=== PATIENT | male | born 1955 | race Caucasian/White ===

== ENCOUNTER 2024-01-29 05:57 | Day surgery (SDC) | payer MEDICARE, SELFPAY ==
[2024-01-29] VITALS (8 sets, daily range): BP systolic 84–131; BP diastolic 51–101; PULSE 67–73; RESP 16; TEMP 36.1–36.3; O2SAT 96–100; BMI 21.1
--- OUTSIDE RECORDS SUMMARY | 2024-01-29 06:04 | XMS RPT_ITS | CCD ---
Author Organization [facility] Care Team Providers Care Emt Basic Name Role Phone Shreyas Lester DO Primary Care Provider [phone] SHREYAS LESTER Referring Unavailable SHREYAS LESTER Primary Care Unavailable SHREYAS LESTER Attending Unavailable SHREYAS LESTER Attending Unavailable SHREYAS LESTER Primary Care Unavailable Shreyas Lester DO Primary Care Provider [phone] Medications Current Medications Medication Drug Class(es) Dates Sig (Normalized) Sig (Original) bacitracin 0.5 unt/mg / polymyxin b 10 unt/mg ophthalmic ointment (1 source) Polymyxin-class Antibacterial Start: 11-10-2022 End: 11-15-2022 apply 3.5 g into the eye(s) every twelve hours bacitracin-polym yxin b (Polysporin) ophthalmic ointment Apply to right eye every 12 hours for 5 days. 3.5 g 0 11/10/2022 11/15/2022 Active sildenafil 100 mg oral tablet (4 sources) Phosphodiesterase 5 Inhibitor Start: 11-29-2023 End: 11-28-2024 take 1 tablet by mouth every twenty-four hours as needed sildenafil (Viagra) 100 MG tablet Take 1 tablet (100 mg) by mouth Daily as needed for erectile dysfunction. 12 tablet 3 11/29/2023 11/28/2024 Active Completed/Discontinued Medications Medication Drug Class(es) Dates Sig (Normalized) Sig (Original) 24 hr buPROPion hydrochloride 300 mg extended release oral tablet (1 source) Aminoketone Start: 04-23-2015 End: 09-29-2022 take 1 tablet by mouth every twenty-four hours in the morning buPROPion XL (Wellbutrin XL) 300 MG 24 hr tablet Take 1 tablet by mouth in the morning. 0 04/23/2015 09/29/2022 Discontinued (Therapy completed) Problems Active Problems Problem Classification Problem Date Documented Da te Episodic/Chronic Disorders of lipid metabolism (3 sources) Hypercholesterolemi a; Translations: [Pure hypercholesterolemi a, unspecified] Onset: 11-29-2023 11-29-2023 Chronic Other and unspecified benign neoplasm (1 source) Lipoma of buttock; Translations: [Benign lipomatous neoplasm of skin and subcutaneous tissue of trunk] 11-29-2023 Episodic Other and unspecified benign neoplasm (2 sources) Benign lipomatous neoplasm of skin and subcutaneous tissue of trunk; Translations: [Benign lipomatous neoplasm of skin and subcutaneous tissue of trunk] Onset: 11-29-2023 Episodic Other gastrointestinal disorders (4 sources) Stool DNA-based colorectal cancer screening positive; Translations: [Other fecal abnormalities] 09-29-2022 Episodic Other gastrointestinal disorders (2 sources) Other fecal abnormalities; Translations: [Other fecal abnormalities] Onset: 11-29-2023 Episodic Other male genital disorders (3 sources) Male erectile dysfunction, unspecified; Translations: [Impotence of organic origin] Onset: 11-29-2023 11-29-2023 Chronic Other screening for suspected conditions (not mental disorders or infectious disease) (7 sources) Patient encounter status; Translations: [Encounter for screening for malignant neoplasm of respiratory organs] Onset: 11-29-2023 09-29-2022 Episodic Other upper respiratory infections (3 sources) Viral upper respiratory tract infection; Translations: [Acute upper respiratory infection, unspecified] Onset: 11-29-2023 11-29-2023 Episodic Screening and history of mental health and substance abuse codes (3 sources) Tobacco smoking behavior - finding; Translations: [Personal history of nicotine dependence] Onset: 11-29-2023 11-29-2023 Episodic Substance-related disorders (6 sources) Smoker; Translations: [Nicotine dependence, unspecified, uncomplicated] Onset: 01-04-2024 09-29-2022 Chronic Superficial injury; contusion (1 source) Abrasion of cornea of right eye; Translations: [Injury of conjunctiva and corneal abrasion without foreign body, right eye, initial encounter] 11-10-2022 Episodic Past or Other Problems Problem Classification Problem Date Documented Da te Episodic/Chronic NEGATED: Highlighted row has been ruled out!Unclassified (7 sources) No known active problems 09-29-2022 Results Test Name Value Interpretation Reference Range Facil ity CT LUNG SCREENING LOW DOSEon 01-07-2024 CT LUNG SCREENING LOW DOSE This is a summary report. The complete report is available in the patient's medical record. If you cannot access the medical record, please contact the sending organization for a detailed fax or copy. [facility] Name[facility]MI[facility]ED[facility] 1955 [id number] Exam Date/Time: 01/04/2024 07:51 Procedure: CT LUNG SCREENING LOW DOSE Ordering Provider: LESTER EUGENE Reason For Exam: Lung cancer screening, >= 20 pk-yr smoking history (Age >= 50y) CT CHEST SCREENING WITHOUT CONTRAST CLINICAL INDICATION: Tobacco use, screening for lung cancer. Lung cancer screening, >= 20 pk-yr smoking history (Age >= 50y) TECHNIQUE: Low-dose axial CT images of the thorax from the lung apices through the bases were obtained. Dose reduction was employed with automated exposure control. COMPARISON: None. FINDINGS: Pulmonary nodules: *All nodule measurements are mean axial diameter and saved on sewell images* 3 mm left lower lobe nodule (6:245) and a few other micronodules bilaterally. Lungs: Centrilobular emphysema is present. Large bleb in the left upper lobe. No airspace consolidation or pleural effusion. Cardiomediastinum: Normal heart size with no pericardial effusion. No evidence of coronary artery calcification. Aorta and pulmonary arteries normal in caliber. Lymph nodes: No enlarged mediastinal, hilar, or axillary lymph nodes. Upper Abdomen: No acute process identified in the upper abdomen. Soft tissues and Osseous structures: Unremarkable IMPRESSION: 1. Few tiny lung nodules, the largest 3 mm. 2. Bullous emphysematous changes. 3. Normal heart. ASSESSMENT CATEGORY: Lung-RADS Category 2 - Benign appearance or behavior. Recommend continued annual low-dose screening CT in 12 months. No other clinically significant findings. Lung-RADS Version 2022 Assessment Categories. Release date: Jan 2022 blank Report Dictated on Electronically Signed By: Dustin Banks MD Electronically Signed Date/Time: 01/07/2024 8:24 AM EDT CHRONIC COUGH DENIES CP OR SOB SMOKED CIGARETTES 1 PPD X 48 YEARS QUIT 2 YEARS AGO CURRENTLY SMOKES 5 CIGARS/DAY NO PRIOR SX Normal [facility] 36on 12-10-2023 36 Transferred to [facility] t notes [facility] 36 Message released to patient as written. ----- Message from Monica Jansen sent at 12/10/2023 6:54 AM EDT ----- ----- Message ----- From: Shreyas Lester DO Sent: 12/09/2023 10:13 PM EDT To: [facility] Clinical Magazine Filler I know patient's reluctance to start a lipid-lowering med. No further recommendations except low-fat meals and will recheck in 6 to 12 months Patient's further questions if applicable: Pt understood message.No further questions. Were all questions from office addressed or relayed to the patient from encounter: Yes [place] [phone] Placed call to patient. Unable to reach them by phone to discuss lab results. Left detailed message to return call to discuss results. Please release information to patient [place] [phone] ----- Message from Monica Jansen sent at 12/10/2023 6:54 AM EDT ----- ----- Message ----- From: Shreyas Lester DO Sent: 12/09/2023 10:13 PM EDT To: [facility] Clinical Magazine Filler I know patient's reluctance to start a lipid-lowering med. No further recommendations except low-fat meals and will recheck in [address] [facility] 36on 12-03-2023 36 Transferred to [facility] notes [facility] 36 Message released to patient as written. ----- Message from Monica Jansen sent at 12/03/2023 6:24 AM EDT ----- ----- Message ----- From: Shreyas Lester DO Sent: 12/02/2023 8:46 PM EDT To: [facility] Clinical Magazine Filler CBC chemistries and prostate marker normal. Only issues persistent LDL elevation over goal of less than 100. Because of his smoking history he should begin a lipid-lowering drug. Let me know if he consents to beginning low-dose Crestor. Patient's further questions if applicable: Pt states would rather wait on starting a new medication. Please advise. Were all questions from office addressed or relayed to the patient from encounter: N/A \ [facility] 36 Placed call to patient. Unable to reach them by phone to discuss lab results. Left detailed message to return call to discuss results. Please release information to patient [facility] 36 ----- Message from Monica Jansen sent at 12/03/2023 6:24 AM EDT ----- ----- Message ----- From: Shreyas Lester DO Sent: 12/02/2023 8:46 PM EDT To: [facility] Clinical Magazine Filler CBC chemistries and prostate marker normal. Only issues persistent LDL elevation over goal of less than 100. Because of his smoking history he should begin a lipid-lowering drug. Let me know if he consents to beginning low-dose Crestor. [facility] Office Visiton 11-29-2023 Follow-up visit [id number] Emile Oviedo 1955 M Date Provider Department Center 11/29/2023 [id number] LESTER [facility] Family History Problem Relation Age of Onset Dementia Mother Comments: age 89 in 05/18, - dementia Heart disease Father 55 Comments: valvular heart ds d/t RF, age 85 No Known Problems Sister Other Mother's Sister Comments: ALS Pancreatic cancer Mother's Brother Comments: smoker and ETOH No Known Problems Maternal Grandmother No Known Problems Maternal Grandfather No Known Problems Paternal Grandmother Comments: Tuberculosis No Known Problems Paternal Grandfather Family Status - Relation Status Age at Mother Father 85 Sister Alive Brother Mother's Sister Alive Mother's Brother Alive Maternal Grandmother Maternal Grandfather Paternal Grandmother Paternal Grandfather Level of Service:G0439 DE PPPS, SUBSEQ VISIT (25) Reason for Visit and Comments: Medicare Annual Wellness Visit Subsequent [677] [facility] PATINSon 11-29-2023 PATINS Personalized Preventative Plan for Emile Oviedo - 11/29/2023 Medicare offers a range of preventative health benefits. Some of the tests and screenings are paid in full while others may be subject to a deductible, co-insurance, and / or copay. Some of these benefits include a comprehensive review of your medical history including lifestyle, illnesses that may run in your family, and various assessments and screenings as appropriate. After reviewing your medical record and screening and assessments performed today, your provider may have ordered immunizations, labs, imaging, and / or referrals for you. A list of these orders (if applicable) as well as your Preventative Care list are included within your After Visit Summary for your review. Other Preventative Recommendations: A preventive eye exam by an talent acquisition specialist is recommended every 1-2 years to screen for glaucoma, cataracts, macular degeneration, and other eye disorders. A preventive dental visit is recommended every 6 months. Try to get at least 150 minutes of exercise per week or 10,000 steps per day on a pedometer. You need 1200-1500mg of calcium and 9972-3952 international units of vitamin D per day. It is possible to meet your calcium requirement with diet alone, but a vitamin D supplement is usually necessary to meet this goal. When exposed to the sun, use a sunscreen that protects against both UVA and UVB radiation with an SPF of 30 or greater. Reapply every 2-3 hours or after sweating, drying off with a towel, or swimming. Always wear a seat belt when traveling in a car. Always wear a helmet when riding a bicycle or a motorcycle Normal [facility] Progress Noteon 11-29-2023 Progress Note [facility] [address] [place] [address] [address] [facility] [address] Dept: [phone] Dept Chief Complaint: Emile Oviedo is an 67 y.o. male here for an annual wellness visit. Assessment/Plan : Problem List Items Addressed This Visit None Visit Diagnoses Encounter for subsequent annual wellness visit (AWV) in Medicare patient - Primary Relevant Orders CBC auto differential Comprehensive metabolic panel Lipid panel PSA Total (Screening) History of smoking 25-50 pack years Screening for lung cancer Prostate cancer screening Relevant Orders PSA Total (Screening) Viral URI Lipoma of buttock Hypercholesterolemia Relevant Orders Lipid panel Erectile dysfunction, unspecified erectile dysfunction type Positive colorectal cancer screening using Cologuard test I have reviewed and reconciled the medication list with the patient today. Current Outpatient Medications Medication Sig Dispense Refill sildenafil (Viagra) 100 MG tablet Take 1 tablet (100 mg) by mouth Daily as needed for erectile dysfunction. 12 tablet 3 No current facility-administered medications for this visit. Also reviewed during this visit: Surg Hx Fam Hx The following health maintenance schedule was reviewed with the patient and provided in printed form in the after visit summary: Health Maintenance Topic Date Due Depression Screening Never done Hepatitis C Screening Never done Zoster Vaccines (1 of 2) Never done RSV Immunization aged 60 or older (1 - 1-dose 60+ series) Never done Medicare Advantage Annual Wellness Visit Never done COVID-19 Vaccine (2 - 2022-24 season) 2023 Influenza Vaccine (1) 11/25/2023 Colorectal Cancer Screening 01/30/2025 Lipid Panel 01/06/2027 DTaP/Tdap/Td Vaccines (2 - Td or Tdap) 11/10/2032 Pneumococcal Vaccine: 65+ Years Completed RSV Immunization under 20 Months Aged Out HIB Vaccines Aged Out Hepatitis B Vaccines Aged Out IPV Vaccines Aged Out Hepatitis A Vaccines Aged Out Meningococcal Vaccine Aged Out Rotavirus Vaccines Aged Out HPV Vaccines Aged Out List of current healthcare providers: Patient Care Team: Shreyas Lester DO as PCP - General (Family Medicine) Orders Placed This Encounter Procedures CBC auto differential Standing Status: Future Number of Occurrences: 1 Standing Expiration Date: 11/28/2024 Comprehensive metabolic panel Standing Status: Future Number of Occurrences: 1 Standing Expiration Date: 11/28/2024 Lipid panel Standing Status: Future Number of Occurrences: 1 Standing Expiration Date: 11/28/2024 PSA Total (Screening) Standing Status: Future Number of Occurrences: 1 Standing Expiration Date: 11/28/2024 Review of Systems Physical Exam Objective : BP 120/70 (BP Location: Left arm, Patient Position: Sitting, BP Cuff Size: Large adult) Pulse 65 Temp 36.1 ?C (97 ?F) (Temporal) Ht 6' 1 (1.854 m) Wt 162 lb 6.4 oz (73.7 kg) SpO2 98% BMI 21.43 kg/m? No results found. The physical exam is generally normal. Patient appears well, alert and oriented x 3, pleasant, cooperative. Vitals are as noted. No carotid bruits. Neck supple, no abnormal adenopathy, thyroid lesions or masses. Ears, nose and throat are normal without acute findings. Lungs are clear to auscultation. Heart is regular, without murmurs, gallops or ectopy. Abdomen is soft, non tender, without masses, hepatosplenomegaly, or bruits. Normal BS evident. Extremities are normal without edema. Peripheral pulses are fair. No worrisome skin lesions. Screening neurological exam is normal without focal deficits. Large soft lipoma on the lateral aspect the left buttock for more than 30 years. No worrisome features no hernias. Prostate exam smooth without nodules. No rectal masses Subjective : Long-term smoker now smoking 5 cigars a day presents for annual wellness exam. Recent cough and congestion. Productive of clear phlegm. No fever body aches. Did not do a COVID exam. No vomiting or diarrhea. Does not feel too sick. History of positive Cologuard but have not had success organizing a colonoscopy no bowel changes. No abdominal pain. No melena or blood no constipation diarrhea. Needs NANCI and PSA. Some nocturia but rarely. No change in vision hearing. Denies exertional chest pain shortness of breath cough or wheezing. Failed to organize a LDCT of the chest last year. Questions about Viagra possibility in lieu of his difficulty maintaining erection. Health Risk Assessment: General: General In general, how would you say your health is?: (P) Excellent In the past 7 days, have you experienced any of the following: New or Increased Pain, New or Increased Fatigue, Loneliness, Social Isolation, Stress or Anger?: (P) No Do you get the social and emotional suppport you need?: (P) Yes Health Habits/Nutrition: Health Habits / Nutrition (more content not included)... [facility] 36on 10-10-2023 36 Changed patients 11/29/23 appointment to his [facility] Progress Noteon 10-05-2023 Progress Note Please schedule AWV to close care gaps. Thank you. [facility] Vital Signs Date Time Vital Sign Value Performing Clinician Nav domínguez 11-29-2023 08:19-0400 Body height 185.4 cm Shreyas Lester DO Work Phone: [facility] 11-29-2023 08:19-0400 Body mass index (BMI) [Ratio] 21.43 kg/m2 Shreyas Lester DO Work Phone: [facility] 11-29-2023 08:19-0400 Body temperature 97 [degF] Shreyas Lester DO Work Phone: [facility] [employer] 11-29-2023 08:19-0400 Body weight 73.66 kg Shreyas Lester DO Work Phone: [facility] [employer] 11-29-2023 08:19-0400 Diastolic blood pressure 70 mm[Hg] Shreyas Lester DO Work Phone: [facility] [employer] 11-29-2023 08:19-0400 Heart rate 65 /min Shreyas Lester DO Work Phone: [facility] [employer] 11-29-2023 08:19-0400 SaO2% (BldA) [Mass fraction] 98 % Shreyas Lester DO Work Phone: [facility] [employer] 11-29-2023 08:19-0400 Systolic blood pressure 120 mm[Hg] Shreyas Lester DO Work Phone: [facility] [employer] 11-10-2022 17:52-0400 Body height 185.4 cm Narendra Verduzco MD Work Phone: [facility] [employer] 11-10-2022 17:52-0400 Body mass index (BMI) [Ratio] 21.11 kg/m2 Narendra Verduzco MD Work Phone: [facility] [employer] 11-10-2022 17:52-0400 Body temperature 98.2 [degF] Narendra Verduzco MD Work Phone: [facility] [employer] 11-10-2022 17:52-0400 Body weight 72.58 kg Narendra Verduzco MD Work Phone: [facility] [employer] 11-10-2022 17:52-0400 Diastolic blood pressure 83 mm[Hg] Narendra Verduzco MD Work Phone: [facility] [employer] 11-10-2022 17:52-0400 Heart rate 72 /min Narendra Verduzco MD Work Phone: [facility] [employer] 11-10-2022 17:52-0400 Respiratory rate 17 /min Narendra Verduzco MD Work Phone: [facility] [employer] 11-10-2022 17:52-0400 SaO2% (BldA) [Mass fraction] 100 % Narendra Verduzco MD Work Phone: [facility] [employer] 11-10-2022 17:52-0400 Systolic blood pressure 118 mm[Hg] Narendra Verduzco MD Work Phone: [facility] [employer] 09-29-2022 11:29-0400 Body height 182.9 cm Shreyas Lester DO Work Phone: [facility] [employer] 09-29-2022 11:29-0400 Body mass index (BMI) [Ratio] 21.54 kg/m2 Shreyas Lester DO Work Phone: [facility] [employer] 09-29-2022 11:29-0400 Body temperature 98.01 [degF] Shreyas Lester DO Work Phone: [facility] [employer] 09-29-2022 11:29-0400 Body weight 72.03 kg Shreyas Lester DO Work Phone: [facility] [employer] 09-29-2022 11:29-0400 Diastolic blood pressure 67 mm[Hg] Shreyas Lester DO Work Phone: [facility] [employer] 09-29-2022 11:29-0400 Heart rate 74 /min Shreyas Lester DO Work Phone: [facility] [employer] 09-29-2022 11:29-0400 SaO2% (BldA) [Mass fraction] 97 % Shreyas Lester DO Work Phone: [facility] [employer] 09-29-2022 11:29-0400 Systolic blood pressure 123 mm[Hg] Shreyas Lester DO Work Phone: [facility] [employer] Encounters Encounter Date Encounter Type Care Provider Facility Start: 01-04-2024 End: 01-04-2024 Subsequent hospital visit by physician Shreyas Lester DO Work Phone: [facility] Comment on above: Moderate smoker (20 or less per day) Start: 01-04-2024 End: 01-04-2024 ambulatory [facility] Start: 11-29-2023 End: 11-29-2023 Telephone encounter Shreyas Lester DO Work Phone: [facility] Comment on above: Orders (LDCT / [facility] o - Dr Friend) Start: 11-29-2023 End: 11-29-2023 Assay of hemosiderin, quant Shreyas Lester DO Work Phone: [facility] Start: 11-29-2023 End: 11-29-2023 Patient encounter procedure Shreyas Lester DO Work Phone: [facility] Comment on above: Encounter for subseq uent annual wellness visit (AWV) in Medicare patient (Primary Dx); History of smoking 25-50 pack years; Screening for lung cancer; Prostate cancer screening; Viral URI; Lipoma of buttock; Hypercholesterolemia; Erectile dysfunction, unspecified erectile dysfunction type; Positive colorectal cancer screening using Cologuard test; Routine general medical examination at health care facility Start: 11-29-2023 End: 11-29-2023 ambulatory [facility] Start: 11-29-2023 End: 11-29-2023 Encounter for general adult medical examination without abnormal findings [facility] Start: 11-10-2022 End: 11-10-2022 Emergency department patient visit Narendra Verduzco MD Work Phone: [facility] Comment on above: Abrasion of right co rnea, initial encounter (Primary Dx) Start: 09-29-2022 Telephone encounter Shreyas Segura jeanine DO Work Phone: [facility] Comment on above: Referral ([facility]) Start: 09-29-2022 End: 09-29-2022 Office outpatient visit 15 minutes Shreyas Lester DO Work Phone: [facility] Comment on above: Positive colorectal cancer screening using Cologuard test (Primary Dx); Smoker; Screening for lung cancer Procedures Date Procedure Procedure Detail Performing Clinician Start: 11-29-2023 Adult depression screening assessment Shreyas Lester DO Work Phone: Start: 11-29-2023 Lipid 1996 panel - S titus or Plasma Shreyas Lester DO Work Phone: Start: 01-06-2022 Lipid 1996 panel - S titus or Plasma Shreyas Lester DO Work Phone: Plan of Treatment Date Care Activity Detail Author Start: 11-10-2032 DTaP/Tdap/Td Vaccine s (2 - Td or Tdap) DTaP/Tdap/Td Vaccines (2 - Td or Tdap) [facility] Start: 11-28-2028 Lipid panel Lipid Panel [facility] Start: 01-06-2027 Lipid panel Lipid Panel [facility] Start: 01-30-2025 Screening for malignant neoplasm of colon [facility] [employer] [employer] Start: 12-01-2024 End: 12-01-[address] [facility] Start: 11-28-2024 Depression Screening Depression Scre ening [facility] [employer] Start: 11-29-2023 End: 11-28-2024 CBC W Auto Differential panel - Blood CBC auto differential Lab Routine Encounter for subsequent annual wellness visit (AWV) in Medicare patient Expected: 11/29/2023 (Approximate), Expires: 11/28/2024 [facility] Work Phone: Comment on above: Expected: 11/29/2023 (Approximate), Expires: 11/28/2024 Start: 11-29-2023 End: 11-28-2024 Comprehensive metabolic 1998 panel - Serum or Plasma Comprehensive metabolic panel Lab Routine Encounter for subsequent annual wellness visit (AWV) in Medicare patient Expected: 11/29/2023 (Approximate), Expires: 11/28/[address] [facility] [employer] [employer] Comment on above: Expected: 11/29/2023 (Approximate), Expires: 11/28/2024 Start: 11-29-2023 End: 11-28-2024 CT Chest for screening WO contrast CT lung screening low dose Imaging Routine Moderate smoker (20 or less per day) Expected: 11/29/2023, [facility]: Comment on above: Expected: 11/29/2023 , Expires: 11/28/2024 Start: 11-29-2023 End: 11-28-2024 Lipid 1996 panel - Serum or Plasma Lipid panel Lab Routine Encounter for subsequent annual wellness visit (AWV) in Medicare patient Hypercholesterolemia Expected: 11/29/2023 (Approximate), Expires: 11/28/[address] [facility] [employer] Comment on above: Expected: 11/29/2023 (Approximate), Expires: 11/28/2024 Start: 11-29-2023 End: 11-28-2024 PSA Total (Screening) PSA Total (Screening) Lab Routine Prostate cancer screening Encounter for subsequent annual wellness visit (AWV) in Medicare patient Expected: 11/29/2023 (Approximate), Expires: 11/28/2024 [facility] Comment on above: Expected: 11/29/2023 (Approximate), Expires: 11/28/2024 Start: 11-25-2023 COVID-19 Vaccine ( season) COVID-19 Vaccine ( - season) [facility] Start: 11-25-2023 Influenza vaccination Influenza Vacc ine (#1) [facility] Start: 11-24-2022 Influenza vaccination Influenza Vacc ine (#1) [facility] Start: 10-05-2020 COVID-19 Vaccine (2 - Booster for Aditya series) COVID-19 Vaccine (2 - Booster for Aditya series) [facility] Start: 2016 RSV Immunization age d 60 or older (1 - 1-dose 60+ series) RSV Immunization aged 60 or older (1 - 1-dose 60+ series) [facility] Start: 2006 Zoster Vaccines (1 o f 2) Zoster Vaccines (1 of 2) [facility] Start: 01-01-1976 DTaP/Tdap/Td Vaccine s (1 - Tdap) DTaP/Tdap/Td Vaccines (1 - Tdap) [facility] Start: 1974 Diabetes mellitus screening Diabetes Screening [facility] Start: 1974 Hepatitis C screening Hepatitis C Sc reening [facility] Start: 1968 Depression Screening Depression Scre ening [facility] Start: 1955 Annual wellness visit Medicare Initial Physical (IPPE) [facility] Start: 1955 Screening for malignant neoplasm of colon [facility] End: 01-04-2024 CT Chest for screening WO contrast [facility] Work Phone: Comment on above: Once for 1 Occurrenc es starting 01/04/2024 until 01/04/2024 Immunizations Immunization Date Immunization Notes Care Provider Travis martínez 11-10-2022 tetanus toxoid, redu shekhar diphtheria toxoid, and acellular pertussis vaccine, adsorbed Narendra Verduzco MD Work Phone: [facility] 01-24-2022 Pneumococcal Conjuga te PCV20, Pf (Prevnar 20) Shreyas Trevon DO Work Phone: [facility] [employer] Payers Date Payer Category Payer Medicare [employer] ANGELIQUEPavel DOMÍNGUEZ [id number] 2021-Present [address] [place] [address] Medicare HMO [id number] 2021 Medicare [id number] Social History Date Type Detail Facility Start: 11-29-2023 Tobacco smoking status NHIS Smokes t obacco daily [facility] History of tobacco use Cigarette Smoker [facility] Start: 09-29-2022 End: 12-02-2023 Alcohol intake Ex-drinker (finding) [facility] Start: 03-22-2022 End: 11-29-2023 History of Social function [facility] Start: 03-22-2022 End: 11-29-2023 Tobacco use panel [facility] Start: 1955 Sex Assigned At Not on file [facility] Start: 09-19-2022 End: 11-10-2022 Exposure to SARS-CoV-2 (event) Not sure [facility] History of tobacco use Cigar Smoker [facility] Start: 11-29-2023 Tobacco use and exposure Smoke less tobacco non-user [facility] How often do you nee d to have someone help you when you read instructions, pamphlets, or other written material from your doctor or pharmacy [SILS] Never [facility] Has the [employer], or water [employer] threatened to shut off services in your home in past 12Mo No [facility] Do you belong to any clubs or organizations such as worship groups, unions, fraternal or athletic groups, or school groups? Yes [facility] Are you now , , , , never or living with a partner? [facility] Do you feel stress - tense, restless, nervous, or anxious, or unable to sleep at night because your mind is troubled all the time - these days [OSQ] Not at all [facility] (I/We) worried wheth er (my/our) food would run out before (I/we) got money to buy more. Never true [facility] Start: 11-29-2023 Tobacco Comment Quit smoking jean rivera in Mar 2023 and now smokes about 5 cigars a day. [facility] Clinical Notes 09-29-2022 to 11-29-2023 Telephone Encounter - Charis Caballero - 11/29/2023 2:23 PM EDTTelephone Encounter - Charis Ada - 11/29/2023 2:23 PM EDFran Lester DO - 11/29/2023 8:30 AM EDTPatient InstructionsAttachments Note Date & Type Note Facility 11-29-2023 Note Orders / referral pe nded for doctor's signature [facility] 11-29-2023 Telephone encounter Note Orders / referral pended for doctor's signature [facility] 11-29-2023 Miscellaneous Notes Orders / referral pended for doctor's signature documented in this encounter [facility] 11-29-2023 History of Present illness Narrative Images from the original note were not included. [facility] [address] [place] [address] Dept: [phone] Dept Chief Complaint: Emile Oviedo is an 67 y.o. male here for an annual wellness visit. Assessment/Plan : Problem List Items Addressed This Visit None Visit Diagnoses Encounter for subsequent annual wellness visit (AWV) in Medicare patient - Primary Relevant Orders CBC auto differential Comprehensive metabolic panel Lipid panel PSA Total (Screening) History of smoking 25-50 pack years Screening for lung cancer Prostate cancer screening Relevant Orders PSA Total (Screening) Viral URI Lipoma of buttock Hypercholesterolemia Relevant Orders Lipid panel Erectile dysfunction, unspecified erectile dysfunction type Positive colorectal cancer screening using Cologuard test I have reviewed and reconciled the medication list with the patient today. Current Outpatient Medications Medication Sig Dispense Refill sildenafil (Viagra) 100 MG tablet Take 1 tablet (100 mg) by mouth Daily as needed for erectile dysfunction. 12 tablet 3 No current facility-administered medications for this visit. Also reviewed during this visit: Surg Hx Fam Hx The following health maintenance schedule was reviewed with the patient and provided in printed form in the after visit summary: Health Maintenance Topic Date Due Depression Screening Never done Hepatitis C Screening Never done Zoster Vaccines (1 of 2) Never done RSV Immunization aged 60 or older (1 - 1-dose 60+ series) Never done Medicare Advantage Annual Wellness Visit Never done COVID-19 Vaccine (2 - 2022- season) 2023 Influenza Vaccine (1) 11/25/2023 Colorectal Cancer Screening 01/30/2025 Lipid Panel 01/06/2027 DTaP/Tdap/Td Vaccines (2 - Td or Tdap) 11/10/2032 Pneumococcal Vaccine: 65+ Years Completed RSV Immunization under 20 Months Aged Out HIB Vaccines Aged Out Hepatitis B Vaccines Aged Out IPV Vaccines Aged Out Hepatitis A Vaccines Aged Out Meningococcal Vaccine Aged Out Rotavirus Vaccines Aged Out HPV Vaccines Aged Out List of current healthcare providers: Patient Care Team: Shreyas Lester DO as PCP - General (Family Medicine) Orders Placed This Encounter Procedures CBC auto differential Standing Status: Future Number of Occurrences: 1 Standing Expiration Date: 11/28/2024 Comprehensive metabolic panel Standing Status: Future Number of Occurrences: 1 Standing Expiration Date: 11/28/2024 Lipid panel Standing Status: Future Number of Occurrences: 1 Standing Expiration Date: 11/28/2024 PSA Total (Screening) Standing Status: Future Number of Occurrences: 1 Standing Expiration Date: 11/28/2024 Review of Systems Physical Exam Objective : BP 120/70 (BP Location: Left arm, Patient Position: Sitting, BP Cuff Size: Large adult) Pulse 65 Temp 36.1 C (97 F) (Temporal) Ht 6' 1 (1.854 m) Wt 162 lb 6.4 oz (73.7 kg) SpO2 98% BMI 21.43 kg/m No results found. The physical exam is generally normal. Patient appears well, alert and oriented x 3, pleasant, cooperative. Vitals are as noted. No carotid bruits. Neck supple, no abnormal adenopathy, thyroid lesions or masses. Ears, nose and throat are normal without acute findings. Lungs are clear to auscultation. Heart is regular, without murmurs, gallops or ectopy. Abdomen is soft, non tender, without masses, hepatosplenomegaly, or bruits. Normal BS evident. Extremities are normal without edema. Peripheral pulses are fair. No worrisome skin lesions. Screening neurological exam is normal without focal deficits. Large soft lipoma on the lateral aspect the left buttock for more than 30 years. No worrisome features no hernias. Prostate exam smooth without nodules. No rectal masses Subjective : Long-term smoker now smoking 5 cigars a day presents for annual wellness exam. Recent cough and congestion. Productive of clear phlegm. No fever body aches. Did not do a COVID exam. No vomiting or diarrhea. Does not feel too sick. History of positive Cologuard but have not had success organizing a colonoscopy no bowel changes. No abdominal pain. No melena or blood no constipation diarrhea. Needs NANCI and PSA. Some nocturia but rarely. No change in vision hearing. Denies exertional chest pain shortness of breath cough or wheezing. Failed to organize a LDCT of the chest last year. Questions about Viagra possibility in lieu of his difficulty maintaining erection. Health Risk Assessment: General: General In general, how would you say your health is?: (P) Excellent In the past 7 days, have you experienced any of the following: New or Increased Pain, New or Increased Fatigue, Loneliness, Social Isolation, Stress or Anger?: (P) No Do you get the social and emotional suppport you need?: (P) Yes Health Habits/Nutrition: Health Habits / Nutrition On average, how many days per week do you engage in moderate to strenous exercise (like a brisk walk)?: (P) 6 days On average, how man minutes do you engage in exercise at this level?: (P) 150 + min Have you lost any weight without trying in the past 3 months? : (P) No Have you seen the dentist within the past year?: (!) (P) No Hearing/ Vision: Hearing / Vision Do you or your family notice any trouble with your hearing that hasn't been managed with hearing aids?: (!) (P) Yes Do you have difficulty driving, watching TV, or doing any of your daily activities because of your eyesight?: (P) No Have you had an eye exam within the past year?: (P) Yes No results found. Interventions: Vision concerns: Patient declines any further evaluation / treatment for this issue Safety: Safety Do you have a working smoke detector?: (P) Yes Do you have any tripping hazards - loose or unsecured carpets or rugs?: (P) No Do you have any tripping hazards - clutter in doorways, halls, or stairs?: (P) No Do you have either shower bars, grab bars, non-slip mats or non-slip surfaces in your shower or bathtub? : (!) (P) No Do all your stairways have a railing or banister? : (!) (P) No Do you fasten your seatbelt when you are in a car?: (P) Yes Interventions: Patient declines any further evaluation / treatment for this issue ADL: ADL In the past 7 days, did you need help from others to perform any of the following everyday activities: Eating, dressing, grooming,bathing, toileting, or walking / balance? : (P) No In the past 7 days, did you need help from others to take care of any of the following: laundry, housekeeping, banking / finances,shopping, telephone use, food preparation, transportation, or taking medications? : (P) No Living Will: Living Will Do you have a living will?: (P) Yes Cognitive: Cognitive Screening: Mini-Cog Clock Drawing Test (CDT): 2 Words Recalled: 3 Total Score: 5 Total Score Interpretation: Normal Mini-Cog Fall Risk: Fall Risk One or more falls in the last year:: (P) No Advised to use a cane or walker to get around safely:: (P) No Feels unsteady when walking:: (P) No Steadies self on furniture while walking at home:: (P) No Worried about falling:: (P) No Depression Screening: Over the past 2 weeks, how often have you been bothered by any of the following problems? Little interest or pleasure in doing things: Not at all Feeling down, depressed, or hopeless: Not at all Patient Health Questionnaire-2 Score: 0 Interventions: Patient declines any further evaluation / treatment for this issue Tobacco Use: Social History Tobacco Use Smoking Status Every Day Types: Cigars Smokeless Tobacco Never Tobacco Comments Quit smoking cigarettes in Mar 2023 and now smokes about 5 cigars a day. Alcohol Use: Audit Alcohol Screening Q2: How many drinks containing alcohol do you have on a typical day when you are drinking?: Patient does not drink 1. History of smoking 25-50 pack years Needs LDCT chest. Encouraged cigar cessation see above 2. Screening for lung cancer See above 3. Prostate cancer screening - PSA Total (Screening); Future - PSA Total (Screening) 4. Viral URI Conservative measures. Call if worsening. COVID exam as needed 5. Encounter for subsequent annual wellness visit (AWV) in Medicare patient - CBC auto differential; Future - Comprehensive metabolic panel; Future - Lipid panel; Future - PSA Total (Screening); Future - CBC auto differential - Comprehensive metabolic panel - Lipid panel - PSA Total (Screening) 6. Lipoma of buttock Observe 7. Hypercholesterolemia Low-fat meals possible statin removed smoking history - Lipid panel; Future - Lipid panel 8. Erectile dysfunction, unspecified erectile dysfunction type Having issues. Viagra. 9. Positive colorectal cancer screening using Cologuard test Urgent GI consultation documented in this encounter [facility] 11-29-2023 Instructions Shreyas Lester DO - 11/29/2023 8:30 AM EDT Personalized Preventative Plan for Emile Oviedo - 11/29/2023 Medicare offers a range of preventative health benefits. Some of the tests and screenings are paid in full while others may be subject to a deductible, co-insurance, and / or copay. Some of these benefits include a comprehensive review of your medical history including lifestyle, illnesses that may run in your family, and various assessments and screenings as appropriate. After reviewing your medical record and screening and assessments performed today, your provider may have ordered immunizations, labs, imaging, and / or referrals for you. A list of these orders (if applicable) as well as your Preventative Care list are included within your After Visit Summary for your review. Other Preventative Recommendations: A preventive eye exam by an talent acquisition specialist is recommended every 1-2 years to screen for glaucoma, cataracts, macular degeneration, and other eye disorders. A preventive dental visit is recommended every 6 months. Try to get at least 150 minutes of exercise per week or 10,000 steps per day on a pedometer. You need 1200-1500mg of calcium and [id number] international units of vitamin D per day. It is possible to meet your calcium requirement with diet alone, but a vitamin D supplement is usually necessary to meet this goal. When exposed to the sun, use a sunscreen that protects against both UVA and UVB radiation with an SPF of 30 or greater. Reapply every 2-3 hours or after sweating, drying off with a towel, or swimming. Always wear a seat belt when traveling in a car. Always wear a helmet when riding a bicycle or a motorcycle documented in this encounter [facility] 11-10-2022 Hospital Discharge instructions Narendra Verduzco MD - 11/10/2022 6:24 PM EDT Tylenol as needed for pain The following attachments cannot be sent through Care Everywhere.Corneal Abrasion (Swedish)Diphtheria and Tetanus Toxoids, and Acellular Pertussis Vaccine, ADULT (Swedish)documented in this encounter [facility] 11-10-2022 Emergency department Note EMERGENCY DEPARTMENT ENCOUNTER Pt Name: Emile Oviedo Birthdate 1955 Date of evaluation: 11/10/2022 ED Provider: Narendra Verduzco MD CHIEF COMPLAINT Chief Complaint Patient presents with Eye Trauma Around 2:45pm, patient was replacing a light fixture and poked himself in the eye with the wire (not live), eye is red and draining, irritated pain rated 3-4/10 History from patient and HISTORY OF PRESENT ILLNESS (Location/Symptom, Timing/Onset, Context/Setting, Quality, Duration, Modifying Factors, Severity) Note limiting factors. I wore appropriate PPE for the entirety of this encounter. HPI Emile Oviedo is a 66 y.o. who presents to the emergency department with chief complaint of right eye pain. Patient states that approximately 2:45 PM he inadvertently hit his eye on a copper wire from the light. No change in his vision. He had some mild photophobia and increase in pain. He told his who recently had an eye foreign body and she brought him to the emergency department for evaluation. Last tetanus immunization unknown. Not intentional. No other injury. Nursing Notes were reviewed. Limitations to history: None Outside historians: Family REVIEW OF SYSTEMS Review of Systems Constitutional: Negative for fever. Eyes: Positive for photophobia and pain. Negative for discharge, redness, itching and visual disturbance. Respiratory: Negative for shortness of breath. Cardiovascular: Negative for chest pain. Gastrointestinal: Negative for abdominal pain. Genitourinary: Negative for difficulty urinating. Musculoskeletal: Negative for back pain and neck pain. Skin: Negative for rash. Neurological: Negative for headaches. Psychiatric/Behavioral: Negative for self-injury. Pertinent positives and negatives as per HPI. PAST MEDICAL HISTORY Past Medical History: Diagnosis Date Bilateral hydrocele Depression Positive colorectal cancer screening using Cologuard test 01/2022 GI ref pnd Prostate cancer screening 12/2021 Smoker SURGICAL HISTORY Past Surgical History: Procedure Laterality Date FINGER SURGERY Right foreign body,index finger TONSILLECTOMY (HISTORICAL) 1959 CURRENT MEDICATIONS Previous Medications No medications on file ALLERGIES Patient has no known allergies. FAMILY HISTORY Family History Problem Relation Name Age of Onset Dementia Mother age 89 in 05/18, - dementia Heart disease Father 55 valvular heart ds, age 85 No Known Problems Sister Other ([id number]) Mother's Sister ALS Pancreatic cancer Mother's Brother smoker and ETOH No Known Problems Maternal Grandmother No Known Problems Maternal Grandfather No Known Problems Paternal Grandmother No Known Problems Paternal Grandfather SOCIAL HISTORY Social History Socioeconomic History Marital status: Tobacco Use Smoking status: Every Day Packs/day: 0.75 Types: Cigarettes Smokeless tobacco: Never Substance and Sexual Activity Alcohol use: Not Currently Drug use: Never Social History Narrative to Lauryn in 09/14. Has 2 sons, one GD. 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 SCREENINGS PHYSICAL EXAM ED Triage Vitals [11/10/22 1752] Temp Heart Rate Resp BP 36.8 C (98.2 F) 72 17 118/83 SpO2 Temp Source Heart Rate Source Patient Position 100 % Oral Monitor -- BP Location FiO2 (%) -- -- Physical Exam Constitutional: Appearance: Normal appearance. HENT: Head: Normocephalic and atraumatic. Cardiovascular: Rate and Rhythm: Normal rate. Pulmonary: Effort: Pulmonary effort is normal. Skin: General: Skin is warm and dry. Neurological: General: No focal deficit present. Mental Status: He is alert. Eyes - acuity 20/20 each, PERRLA, EOM intact, Slit lamp shows no foreign body no hyphema. Small abrasion. EMERGENCY DEPARTMENT COURSE and DIFFERENTIAL DIAGNOSIS/MDM: Vitals: Vitals: 11/10/22 1752 BP: 118/83 Pulse: 72 Resp: 17 Temp: 36.8 C (98.2 F) TempSrc: Oral SpO2: 100% Weight: 72.6 kg (160 lb) Height: 1.854 m (6' 1 ) Medical Decision Making and ED Course The patient presented with a chief complaint of right eye pain. The differential diagnosis associated with this patient's presentation includes global perforation hyphema retained foreign body abrasion contusion. Our workup consisted of ordering/reviewing history and physical examination. Patient states that the wire did not break. There is no evidence on slit-lamp examination of hyphema foreign body perforation. he does have evidence of a small abrasion. His symptoms improved with tetracaine further confirming an abrasion. His tetanus immunization was updated. Patient agrees with symptomatic treatment and PCP follow-up as an outpatient. Chronic conditions impacting care: depression Social determinants of health affecting care: Retired ED Medications managed: Symptoms improved with tetracaine. He agrees to as needed bacitracin ointment at home. Medications tetracaine (Altacaine) 0.5 % ophthalmic solution 1-2 drop (has no administration in time range) Tdap (BoostRIX) vaccine 0.5 mL (has no administration in time range) FINAL IMPRESSION 1. Abrasion of right cornea, initial encounter DISPOSITION Discharge 11/10/2022 06:22:39 PM PATIENT REFERRED TO: Shreyas Lester DO [address] [facility] [address] as previously scheduled [facility] [address] [place] [phone] As needed DISCHARGE MEDICATIONS: New Prescriptions BACITRACIN-POLYMYXIN B (POLYSPORIN) OPHTHALMIC OINTMENT Apply to right eye every 12 hours for 5 days. (Comment: Please note this report has been produced using speech recognition software and may contain errors related to that system including errors in grammar, punctuation, and spelling, as well as words and phrases that may be inappropriate. If there are any questions or concerns please feel free to contact the dictating provider for clarification.) Narendra Verduzco MD (electronically signed) Emergency Medicine Provider Narendra Verduzco MD 11/10/22 1900 Patient ambulatory to room 4 presenting with c/o of right eye trauma. Around 2:45pm, patient was replacing a light fixture and poked himself in the eye with the wire (not live), eye is red and draining, irritated pain rated 3-4/10. Constant pain described as sharp and aching. Patient states that the wire is new and he does not believe anything is in his eye. He is able to open eye but requires frequent blinking for comfort. Visual acuity completed. Vital signs are stable, call light in reach. documented in this encounter [facility] 11-10-2022 Emergency department Triage note Patient ambulatory to room 4 presenting with c/o of right eye trauma. Around 2:45pm, patient was replacing a light fixture and poked himself in the eye with the wire (not live), eye is red and draining, irritated pain rated 3-4/10. Constant pain described as sharp and aching. Patient states that the wire is new and he does not believe anything is in his eye. He is able to open eye but requires frequent blinking for comfort. Visual acuity completed. Vital signs are stable, call light in reach. [facility] 11-10-2022 Physician Emergency department Note EMERGENCY DEPARTMENT ENCOUNTER Pt Name: Emile Oviedo Birthdate 1955 Date of evaluation: 11/10/2022 ED Provider: Narendra Verduzco MD CHIEF COMPLAINT Chief Complaint Patient presents with Eye Trauma Around 2:45pm, patient was replacing a light fixture and poked himself in the eye with the wire (not live), eye is red and draining, irritated pain rated 3-4/10 History from patient and HISTORY OF PRESENT ILLNESS (Location/Symptom, Timing/Onset, Context/Setting, Quality, Duration, Modifying Factors, Severity) Note limiting factors. I wore appropriate PPE for the entirety of this encounter. HPI Emile Oviedo is a 66 y.o. who presents to the emergency department with chief complaint of right eye pain. Patient states that approximately 2:45 PM he inadvertently hit his eye on a copper wire from the light. No change in his vision. He had some mild photophobia and increase in pain. He told his who recently had an eye foreign body and she brought him to the emergency department for evaluation. Last tetanus immunization unknown. Not intentional. No other injury. Nursing Notes were reviewed. Limitations to history: None Outside historians: Family REVIEW OF SYSTEMS Review of Systems Constitutional: Negative for fever. Eyes: Positive for photophobia and pain. Negative for discharge, redness, itching and visual disturbance. Respiratory: Negative for shortness of breath. Cardiovascular: Negative for chest pain. Gastrointestinal: Negative for abdominal pain. Genitourinary: Negative for difficulty urinating. Musculoskeletal: Negative for back pain and neck pain. Skin: Negative for rash. Neurological: Negative for headaches. Psychiatric/Behavioral: Negative for self-injury. Pertinent positives and negatives as per HPI. PAST MEDICAL HISTORY Past Medical History: Diagnosis Date Bilateral hydrocele Depression Positive colorectal cancer screening using Cologuard test 01/2022 GI ref pnd Prostate cancer screening 12/2021 Smoker SURGICAL HISTORY Past Surgical History: Procedure Laterality Date FINGER SURGERY Right foreign body,index finger TONSILLECTOMY (HISTORICAL) 1959 CURRENT MEDICATIONS Previous Medications No medications on file ALLERGIES Patient has no known allergies. FAMILY HISTORY Family History Problem Relation Name Age of Onset Dementia Mother age 89 in 05/18, - dementia Heart disease Father 55 valvular heart ds, age 85 No Known Problems Sister Other ([id number]) Mother's Sister ALS Pancreatic cancer Mother's Brother smoker and ETOH No Known Problems Maternal Grandmother No Known Problems Maternal Grandfather No Known Problems Paternal Grandmother No Known Problems Paternal Grandfather SOCIAL HISTORY Social History Socioeconomic History Marital status: Tobacco Use Smoking status: Every Day Packs/day: 0.75 Types: Cigarettes Smokeless tobacco: Never Substance and Sexual Activity Alcohol use: Not Currently Drug use: Never Social History Narrative to Lauryn in 09/14. Has 2 sons, one GD. 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 SCREENINGS PHYSICAL EXAM ED Triage Vitals [11/10/22 1752] Temp Heart Rate Resp BP 36.8 C (98.2 F) 72 17 118/83 SpO2 Temp Source Heart Rate Source Patient Position 100 % Oral Monitor -- BP Location FiO2 (%) -- -- Physical Exam Constitutional: Appearance: Normal appearance. HENT: Head: Normocephalic and atraumatic. Cardiovascular: Rate and Rhythm: Normal rate. Pulmonary: Effort: Pulmonary effort is normal. Skin: General: Skin is warm and dry. Neurological: General: No focal deficit present. Mental Status: He is alert. Eyes - acuity 20/20 each, PERRLA, EOM intact, Slit lamp shows no foreign body no hyphema. Small abrasion. EMERGENCY DEPARTMENT COURSE and DIFFERENTIAL DIAGNOSIS/MDM: Vitals: Vitals: 11/10/22 1752 BP: 118/83 Pulse: 72 Resp: 17 Temp: 36.8 C (98.2 F) TempSrc: Oral SpO2: 100% Weight: 72.6 kg (160 lb) Height: 1.854 m (6' 1 ) Medical Decision Making and ED Course The patient presented with a chief complaint of right eye pain. The differential diagnosis associated with this patient's presentation includes global perforation hyphema retained foreign body abrasion contusion. Our workup consisted of ordering/reviewing history and physical examination. Patient states that the wire did not break. There is no evidence on slit-lamp examination of hyphema foreign body perforation. he does have evidence of a small abrasion. His symptoms improved with tetracaine further confirming an abrasion. His tetanus immunization was updated. Patient agrees with symptomatic treatment and PCP follow-up as an outpatient. Chronic conditions impacting care: depression Social determinants of health affecting care: Retired ED Medications managed: Symptoms improved with tetracaine. He agrees to as needed bacitracin ointment at home. Medications tetracaine (Altacaine) 0.5 % ophthalmic solution 1-2 drop (has no administration in time range) Tdap (BoostRIX) vaccine 0.5 mL (has no administration in time range) FINAL IMPRESSION 1. Abrasion of right cornea, initial encounter DISPOSITION Discharge 11/10/2022 06:22:39 PM PATIENT REFERRED TO: Shreysa Lester DO [address] [place] [id number] as previously scheduled [facility] [address] [place] [phone] As needed DISCHARGE MEDICATIONS: New Prescriptions BACITRACIN-POLYMYXIN B (POLYSPORIN) OPHTHALMIC OINTMENT Apply to right eye every 12 hours for 5 days. (Comment: Please note this report has been produced using speech recognition software and may contain errors related to that system including errors in grammar, punctuation, and spelling, as well as words and phrases that may be inappropriate. If there are any questions or concerns please feel free to contact the dictating provider for clarification.) Narendra Verduzco MD (electronically signed) Emergency Medicine Provider Narendra Verduzco MD 11/10/22 1900 [facility] 09-29-2022 Telephone encounter Note Referral pended for doctor's signature [facility] 09-29-2022 Miscellaneous Notes Referral pended for doctor's signature documented in this encounter [facility] 09-29-2022 History of Present illness Narrative Images from the original note were not included. [facility] [address] [facility] [id number] Visit type: Established Patient Reason for Visit: Results (Go over cologuard results) Assessment / Plan: Emile was seen today for results. Diagnoses and all orders for this visit: Positive colorectal cancer screening using Cologuard test (Primary) Comments: GI ref for Cscope Smoker Comments: Uncontrolled, smoking cessation urged, he seems disinterested Screening for lung cancer Comments: LDCT will be ordered Subjective: Patient ID: Emile Oviedo is a 66 y.o. male. HPI long-term smoker presents to discuss a positive Cologuard exam done in January. Of note he has been out of the country living in [place] for the last 6 to 7 months. 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 Overall feels fine He is a long-term smoker. No constitutional symptoms. No abdominal pain. Eating and voiding well. No melena or blood. Bowels are regular. Review of Systems we did reach out to try to schedule a screening CT of his chest but he was out of the country. He is interested in getting an LDCT. Still smoking but without symptoms of cough chest pain or wheezing or dyspnea. No new symptoms since last seen in January. He does note that his mother at age 89 this past April. She had been living in a fdc with dementia. He did have a maternal uncle who passed from pancreatic cancer No Known Allergies Current Outpatient Medications on File Prior to Visit Medication Sig Dispense Refill [DISCONTINUED] buPROPion XL (Wellbutrin XL) 300 MG 24 hr tablet Take 1 tablet by mouth in the morning. No current facility-administered medications on file prior to visit. There is no problem list on file for this patient. Social History Tobacco Use Smoking status: Every Day Packs/day: 0.75 Types: Cigarettes Smokeless tobacco: Never Substance Use Topics Alcohol use: Not Currently Past Surgical History: Procedure Laterality Date FINGER SURGERY Right foreign body,index finger TONSILLECTOMY (HISTORICAL) 1959 Family History Problem Relation Name Age of Onset Dementia Mother age 89, - dementia wing Heart disease Father 55 valvular heart ds, age 85 No Known Problems Sister Other ([id number]) Mother's Sister ALS Pancreatic cancer Mother's Brother smoker and ETOH No Known Problems Maternal Grandmother No Known Problems Maternal Grandfather No Known Problems Paternal Grandmother No Known Problems Paternal Grandfather Objective: BP 123/67 Pulse 74 Temp 36.7 C (98 F) (Temporal) Ht 6' (1.829 m) Wt 158 lb 12.8 oz (72 kg) SpO2 97% BMI 21.54 kg/m Physical Exam he appears well. No neck masses JVD adenopathy or carotid bruits. Heart is regular without gallops or murmurs. Lungs are diminished but clear of rales wheezes or egophony. Abdomen scaphoid without pain hepatosplenomegaly masses or bruits. No adenopathy. Peripheral pulses are diminished but adequate. No appreciable leg edema [facility] Diagnosis Positive colorectal cancer screening using [facility]ard [facility] Positive colorectal cancer screening using Cologuard test- Primary Smoker Tobacco use disorder Screening for lung cancer [facility] Diagnosis Abrasion of right cornea, initial encounter- Primary [facility] Diagnosis Encounter for subsequent annual wellness visit (AWV) in Medicare patient- Primary History of smoking 25-50 pack years Screening for lung cancer Prostate cancer screening Special screening for malignant neoplasm of prostate Viral URI Acute upper respiratory infections of unspecified site Lipoma of buttock Hypercholesterolemia Pure hypercholesterolemia Erectile dysfunction, unspecified erectile dysfunction type Positive colorectal cancer screening using Cologuard test Routine general medical examination at health care facility Routine general medical examination at a health care facility [facility] Diagnosis Moderate smoker (20 or less per day) Tobacco use disorder Positive colorectal cancer screening using Cologuard test [facility] Diagnosis Moderate smoker (20 or less per day) Tobacco use disorder [facility] (n[facility]ative)* Consultation (Routine) - Pending Review Specialty Diagnoses / Procedures Referred By Contac t Referred To Contact Gastroenterology Diagnoses Positive colorectal cancer screening using Cologuard test Procedures DE OFFICE/OUTPATIENT NEW HIGH MDM 60-74 MINUTES Shreyas Lester DO [address] [place] [address] Danielito Brenner MD [address] [place] [address] Referral ID Status Reason Start Date Expiration Date Visits Requested Visits Authorized [id number] Pending Review Specialty Services Required 09/29/2022 09/29/2023 1 1 [facility] Consultation (Routine) - Pending Review Specialty Diagnoses / Procedures Referred By Contac t Referred To Contact Gastroenterology Diagnoses Positive colorectal cancer screening using Cologuard test Procedures DE OFFICE/OUTPATIENT NEW HIGH MDM 60 MINUTES Shreyas Lester DO [address] [place] [address] Rudolph Olivaresn Jayne Zhao, [address] [place] [address] Referral ID Status Reason Start Date Expiration Date Visits Requested Visits Authorized [id number] Pending Review Specialty Services Required 11/29/2023 11/28/2024 1 1 * Imaging (Routine) - Pending Review Specialty Diagnoses / Procedures Referred By Contac t Referred To Contact Radiology Diagnoses Moderate smoker (20 or less per day) Procedures CT lung screening low dose Shreyas Lester DO [address] [place] [address] Referral ID Status Reason Start Date Expiration Date V isits Requested Visits Authorized [id number] Pending Review 11/29/2023 11/28/2024 1 1 [facility] Summary Purpose Family History No Family History Records Found Advance Directives No Advanced Directives Records Found Reason for Referral Specialty Diagnoses / Procedures Referred By Melchor burks Referred To Contact Radiology Diagnoses Moderate smoker (20 or less per day) Procedures CT lung screening low dose Shreyas Lester Salvador, DO [address] [place] [address] Referral ID Status Reason Start Date Expiration Date Visits Re quested Visits Authorized [id number] Closed 11/29/2023 11/28/2024 1 1 Additional Source Comments Reason for Visit (unrecogniz ed section and content) Reason Onset Date Comments Referral 09/29/2022 [facility] Reason Comments Results Go over cologuard re sults Reason Comments Eye Trauma Around 2:45pm, patie nt was replacing a light fixture and poked himself in the eye with the wire (not live), eye is red and draining, irritated pain rated 3-4/10 Reason Comments Medicare Annual Wellness Visit Glen t Reason Onset Date Comments Orders 11/29/2023 LDCT / Gastro - Dr Friend Specialty Diagnoses / Procedures Referred By Melchor t Referred To Contact Radiology Diagnoses Moderate smoker (20 or less per day) Procedures CT lung screening low dose Shreyas Lester, [address] [place] [address] Referral ID Status Reason Start Date Expiration Date Visits Re quested Visits Authorized [id number] Closed 11/29/2023 11/28/2024 1 1 Care Teams (unrecognized sec tion and content) Emt Basic Relationship Specialty Start Date End Date Shreyas Lester SalvadorDO [address] [place] [address] PCP - General Family Medicine 01/24/22 Emt Basic Relationship Specialty Start Date End Date Shreyas Lester SalvadorDO [address] [place], [place] [id number] PCP - General Family Medicine 01/24/22 Emt Basic Relationship Specialty Start Date End Date Shreyas Lester DO [address] [place], [place] [id number] PCP - General Family Medicine 01/24/22 Emt Basic Relationship Specialty Start Date End Date Shreyas Lester DO [address] [place] [address] PCP - General Family Medicine 01/24/22 Emt Basic Relationship Specialty Start Date End Date Shreyas Lester DO [address] [place] [address] PCP - General Family Medicine 01/24/22 Emt Basic Relationship Specialty Start Date End Date Shreyas Lester DO [address] [place] [address] PCP - General Family Medicine 01/24/22 Scheduled Active and Recently Administ ered Medications (unrecognized section and content) Medication Order 11/08/2022 11/09/2022 11/10/2022 tetracaine (Altacaine) 0.5 % ophthalmic solution 1-2 drop 1-2 drop, Right Eye, Once, On Sun11/10/22 at 1805, For 1 dose 1805 (Canceled Entry - Provider: Automatic Discharge Provider - Comment: Automatically canceled at discontinue of medication order) (unrecognized sect ion and content) No Status Records Found INFORMATION SOURCE (unrecogn ized section and content) DATE CREATED AUTHOR 01/08/2024 [facility] FOR RECORDS PERTAINING TO PATIENTS WHO ARE OR HAVE BEEN ENROLLED IN A CHEMICAL DEPENDENCY/SUBSTANCEABUSE PROGRAM, SOME INFORMATION MAY BE OMITTED. This clinical summary was aggregated from multiple sources. Caution should be exercised in using it in the provision of clinical care. This summary normalizes information from multiple sources, and as a consequence, information in this document may materially change the coding, format and clinical context of patient data. In addition, data may be omitted in some cases. CLINICAL DECISIONS SHOULD BE BASED ON THE PRIMARY CLINICAL RECORDS. [facility] [employer] [facility]. provides no warranty or guarantee of the accuracy or completeness of information in this document.
--- NOTE | 2024-01-29 06:34 | HP.PCM_ITS ---
History and Physical Date of Admission: 01/29/24 Chief Complaint: positive colagaurd test Details: ENRICO BRUMFIELD, is a 68 M who presents to the office today for establishment with [facility]. Over a year ago pt did a Cologuard test and it came back positive. He has never had a colonoscopy or EGD before. He is here today because his PCP would like for him to get a colonoscopy. He does not have family hx of colon cancer but he tell me had an uncle with pancreatic cancer. He denies abdominal pain, heartburn, n/v, constipation, diarrhea, or melena. ROS Const Constitutional: No anorexia, fatigue, fever(s), weight change or sleep problems Eyes Eyes: No change in vision ENT ENT: No abnormal hearing, difficulty swallowing, mouth lesions, tongue swelling or throat swelling Resp Respiratory: No cough or shortness of breath Cardio Cardiology: No chest pain at rest, chest pain with exertion, shortness of breath or dyspnea on exertion Gastro GI: No difficulty swallowing Genitourinary Male: No difficulty urinating or burning urination Musc Musculoskeletal: No joint pain, joint swelling, muscle weakness or decreased muscle mass Skin Skin: No hair loss in leg, yellowing of the eye, itchy eyes, rash, skin ulcer or skin swelling Neuro Neurology: No abnormal hearing, abnormal movements, confusion, unsteady gait/balance or memory loss Psych Psychiatric: No anxiety, No confusion and No memory loss Endo Endocrine: No fatigue or weight change Aller/Imm Allergy/Immunologic: No itchy eyes, throat swelling or tongue swelling Kei/Lymp Hematologic/Lymphatic: No easy bleeding, easy bruising or enlarged lymph nodes Exam Const General: cooperative and comfortable Nutritional Appearance: average body habitus and well nourished [facility] Head: normal to inspection Ears: hearing grossly normal bilaterally Nose: external nose normal Face and sinus: normal facial exam Mouth: oral mucosae normal Throat: posterior oropharynx normal Eyes General: appearance normal, both eyes and all related structures Neck Neck: normal visual inspection Chest Chest palpation & inspection: normal inspection of the chest Resp Effort & Inspection: normal respiratory effort GI Inspection: normal to inspection Palpation: no hepatosplenomegaly Skin General: no rashes or lesions noted Neuro General: patient alert Extrem General: normal to inspection Psych Affect: normal affect Assessment and Plan Assessment and Plan (1) Positive colorectal cancer screening using Cologuard test: Status: Acute Plan: Pt is a 68 to male presenting to the office today for evaluation after having a positive Cologuard tests a year ago. He denies having any GI complaints. He has never had a screening colonoscopy. He is here because his PCP told him he needs a colonoscopy. I agree and he will be scheduled for this. I discussed the procedure and prep with him. All questions answered. He is agreeable to plan. -Colonoscopy -f/u as needed Coding Level of Care Code Off vis,new,level 2 Diagnoses Positive colorectal cancer screening using Cologuard test R19.5 I have examined the patient and the H&P has been reviewed. There are no clinical changes since date of exam.
--- NOTE | 2024-01-29 06:37 | PCM.PRE.AN2 ---
ASA Classification* ASA Classification ASA Classification: 2 Assessment & Plan Anesthesia* Anesthesia Assessment Anesthesia Assessment: Discussed sedation and/or anesthesia options, risks, benefits, and alternatives with patient/parents/legal guardian/POA. Questions invited. The patient/parents/legal guardian/POA seems to understand and agrees to proceed with anesthesia plan. Reviewed the physical assessment, medical history, allergy history and patient home medications list prior to surgery/procedure/anesthetic and documented any changes. Performed airway and anesthesia risk assessments. Anesthesia Type Anesthesia Type: MAC Anesthesia Focused Assessment* Temperature: 97.3 F Pulse Rate: 70 Blood Pressure: 118/75 Respiratory Rate: 16 Pulse Ox: 100 Airway Assessment Mouth opens: >3 cm Mallampati Score: II Focused Labs Anesthesia Preop lab: CBC CHEMISTRY COAG Pre-Assessment Diagnosis/Proposed Procedure Planned Operative Procedure(s): CSCOPE Anesthesia History Anesthesia History - budget controller: Anesthesia History - budget controller Hx Hospitalization No 01/23/24 12:46 Any Problems With Anesthesia No 01/23/24 12:46 Cholinesterase deficiency No 01/23/24 12:46 You/Your Family Experience No 01/23/24 12:46 fever (hyperthermia) with Relationship Recent Exposure to Contagious No 01/29/24 06:19 Disease Does patient have nerve No 01/23/24 12:46 stimulator Patient instructed to have device shut off --Does patient have Pacemaker No 01/29/24 06:19 or ICD? When Was Last Pacemaker Check QUESTION #4 FULL TEXT: You/Your Family Experience fever (hyperthermia) with Anesthesia Last Oral Intake Last Oral intake: Last Oral Intake NPO since 03:30 01/29/24 06:19 Meds taken in AM with sips of No 01/29/24 06:19 water? Meds patient instructed to take am of surgery PONV PONV - budget controller: PONV - budget controller Female No 01/23/24 12:46 HX of Motion Sickness No 01/23/24 12:46 HX of N/V After Surgery No 01/23/24 12:46 Non-Smoker No 01/23/24 12:46 Duration of Surgery greater No 01/23/24 12:46 than 60 minutes Number of Risk Factors PONV Score Height & Weight Height & Weight: Anesthesia: Height & Weight Height 6 ft 1 in 01/29/24 06:19 Weight: 72.575 kg 01/29/24 06:19 Body Mass Index (BMI) 21.1 01/29/24 06:19 Respiratory Assessment Respiratory Assessment - budget controller: Respiratory Tract Infection Hx - budget controller Hx Respiratory Tract Infection No 01/23/24 12:46 STOP Sleep Apnea STOP Sleep Apnea - budget controller: STOP Sleep Apnea - budget controller Hx Hypertension No 01/23/24 12:46 Hx Sleep Apnea No 01/23/24 12:46 CPAP BIPAP Do you snore loudly (louder No 01/23/24 12:46 than talking or can be heard Do you often feel tired/ No 01/23/24 12:46 fatigued/ sleepy during daytime? Has anyone observed you stop No 01/23/24 12:46 breathing during sleep? STOP Results Negative 01/23/24 12:46 QUESTION #5 FULL TEXT : Do you snore loudly (louder than talking or can be heard through closed doors)? 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 Specify any problems Hx of Preganancy in last 3 N/A 01/23/24 12:46 Months Nurse Filling Out Transfusion NBUCHER 01/23/24 12:46 & Questions: Date: 01/23/24 01/23/24 12:46 Time: 12:46 01/23/24 12:46 Patient unable to answer at this time (ie. confused, unrespo /Reproduction History /Reproductive History - budget controller: /Reproductive Hx- budget controller Hx Now No 01/23/24 12:46 Gestational Age (in weeks): EDC: Hx Hx Para Hx Section SAB No 01/23/24 12:46 PFSH Medical History Wears glasses Smoker Erectile dysfunction Hypercholesterolemia Lipoma of buttock Home Medications ?Medication ?Instructions ?Recorded ?Last Taken ?Type sildenafil 100 mg tablet 100 mg PO QDAY PRN sexual activity 01/01/24 Unknown History Allergy/AdvReac Type Severity Reaction Status Date / Time No Known Allergies Allergy Verified 01/29/24 06:23 Surgical History History of hand surgery History of hernia repair Social History Smoking Status: Current every day smoker tobacco type: cigarettes and cigars Smokeless tobacco user: other how long ago did patient quit smoking: stopped smoking cigarettes in March 2023 alcohol intake: never Review of Systems (Anesthesia) ROS Narrative System reviewed and no additional complaints, except as documented.
--- NOTE | 2024-01-29 07:00 | COLBX_PTH ---
PATHOLOGY RESULTS PATIENT: KATEY BRUMFIELD LOC: EN U#:[id number] AGE/SX: 68/M ROOM: RE01/29/[address]: Dr. Christopher Olivares DO : 1955 BED: DIS: 01/29/2024 SPEC #: [id number] RECD: 01/29/24 16:36 STATUS: ERNESTO JIM #: [id number] ERWIN: 01/29/24 07:[address]: Christopher Olivares DEPT: SURGICAL PATHOLOGY RECD BY: Sally Gonzalez ENTERED: 01/30/24 09:57 SP TYPE: COLON BX REYNALDO DR: Dr. Shreyas Lester DO Tissues: SPLENIC FLEXURE Sigmoid colon biopsy Sigmoid colon biopsy Rectum, NOS Procedures: Surgery Specimen Level IV HEADER OPERATION: Colonoscopy with biopsy and polypectomies PRE-OP DIAGNOSIS: Positive colorectal cancer screening using Cologuard test TISSUE SUBMITTED: A- Splenic flexure biopsy, B- Sigmoid polyp, C- Sigmoid polyp #2, D- Rectal polyp MICROSCOPIC DIAGNOSIS A. Splenic flexure, biopsy: Fragments of tubular adenoma. B. Sigmoid polyp, polypectomy: Fragments of tubular adenoma. Fragments of hyperplastic polyp. C. Sigmoid polyp #2, polypectomy: Fragments of tubular adenoma. Fragments of hyperplastic polyp. D. Rectal polyp, polypectomy: Hyperplastic polyp. SJBrett 01/31/2024 MICROSCOPIC DESCRIPTION Slides are reviewed. GROSS DESCRIPTION A. Received in fixative is one container labeled with the patient's name and designated Splenic flexure biopsy. The specimen consists of multiple irregular fragments of light vogel soft tissue that in aggregate measure 1.5 x 0.6 x 0.1 cm. The specimen is totally submitted in one cassette. B. Received in fixative is one container labeled with the patient's name and designated Sigmoid colon polyp. The specimen consists of multiple irregular fragments of light vogel soft tissue that in aggregate measure 2.0 x 0.6 x 0.2 cm. The specimen is totally submitted in one cassette. C. Received in fixative is one container labeled with the patient's name and designated Sigmoid polyp #2. The specimen consists of a pink congested polyp measuring 1.0 x 0.6 x 0.6cm. This piece is bisected. Also present in the container are multiple variable sized pink congested polyp measuring in aggregate 1.5 x 0.5 x 0.3cm. The entire specimen is submitted in one cassette. D. Received in fixative is one container labeled with the patient's name and designated Rectal polyp. The specimen consists of a vogel-pink polyp measuring 0.7 x 0.6 x 0.3cm. The entire specimen is submitted in one cassette. 01/30/2024 TC:1 CPT:79900e8
--- NOTE | 2024-01-29 07:46 | OP.CCLET_ITS ---
01/29/2024 Shreyas Lester Re : Colonoscopy procedure for Kojo Oviedo Dear Trevon This procedure was performed on Monday, January 29, 2024. My impressions and recommendations are as follows: Impressions : - Nine 1 to 2 mm polyps in the rectum, in the sigmoid colon and at the splenic flexure, removed with a cold snare. Resected and retrieved. - Four 5 mm polyps at the recto-sigmoid colon, at the splenic flexure and in the transverse colon, removed with a cold biopsy forceps. Resected and retrieved. Recommendations : - Repeat colonoscopy in 3 years for surveillance. - Continue present medications. My findings are described in the full procedure note, which is enclosed. If I can be of further assistance, please feel free to contact me at . Sincerely, Christopher Olivares, 01/29/2024 7:46:18 AM This report has been signed electronically.
--- NOTE | 2024-01-29 07:46 | OP.COLON_ITS ---
Patient Name: Kojo Oviedo Procedure Date: 01/29/2024 7:07 AM Date of : 1955 Age: 68 Procedure: Colonoscopy Indications: Screening for colorectal malignant neoplasm Providers: Christopher Olivares DO Medicines: Monitored Anesthesia Care Patient Profile: This is a 68 year old male. Refer to note in patient chart for documentation of history and physical. Last Colonoscopy: none. The patient's first colonoscopy is today. Complications: No immediate complications. Procedure: Pre-Anesthesia Assessment: - Prior to the procedure, a History and Physical was performed, and patient medications and allergies were reviewed. The patient is competent. The risks and benefits of the procedure and the sedation options and risks were discussed with the patient. All questions were answered and informed consent was obtained. Patient identification and proposed procedure were verified by the physician in the pre-procedure area. Mental Status Examination: alert and oriented. Airway Examination: normal oropharyngeal airway and neck mobility. Respiratory Examination: clear to auscultation. CV Examination: normal. Prophylactic Antibiotics: The patient does not require prophylactic antibiotics. Prior Anticoagulants: The patient has taken no anticoagulant or antiplatelet agents. ASA Grade Assessment: II - A patient with mild systemic disease. After reviewing the risks and benefits, the patient was deemed in satisfactory condition to undergo the procedure. The anesthesia plan was to use monitored anesthesia care (MAC). Immediately prior to administration of medications, the patient was re-assessed for adequacy to receive sedatives. The heart rate, respiratory rate, oxygen saturations, blood pressure, adequacy of pulmonary ventilation, and response to care were monitored throughout the procedure. The physical status of the patient was re-assessed after the procedure. After I obtained informed consent, the scope was passed under direct vision. Throughout the procedure, the patient's blood pressure, pulse, and oxygen saturations were monitored continuously. The Colonoscope was introduced through the anus and advanced to the cecum, identified by appendiceal orifice and ileocecal valve. The colonoscopy was performed without difficulty. The patient tolerated the procedure well. The quality of the bowel preparation was adequate. The ileocecal valve, appendiceal orifice, and rectum were photographed. Scope In: 7:13:58 AM Scope Withdrawal Time 0 hours 24 minutes 4 seconds Scope Out: 7:41:38 AM Total Procedure Duration Time 0 hours 27 minutes 40 seconds Findings: The perianal and digital rectal examinations were normal. Nine sessile polyps were found in the rectum, sigmoid colon and splenic flexure. The polyps were 1 to 2 mm in size. These polyps were removed with a cold snare. Resection and retrieval were complete. Verification of patient identification for the specimen was done. Estimated blood loss was minimal. Four sessile polyps were found in the recto-sigmoid colon, splenic flexure and transverse colon. The polyps were 5 mm in size. These polyps were removed with a cold biopsy forceps. Resection and retrieval were complete. Verification of patient identification for the specimen was done. Estimated blood loss was minimal. Impression: - Nine 1 to 2 mm polyps in the rectum, in the sigmoid colon and at the splenic flexure, removed with a cold snare. Resected and retrieved. - Four 5 mm polyps at the recto-sigmoid colon, at the splenic flexure and in the transverse colon, removed with a cold biopsy forceps. Resected and retrieved. Recommendation: - Repeat colonoscopy in 3 years for surveillance. - Continue present medications. Procedure Code(s): --- Professional --- 29100, Colonoscopy, flexible; with removal of tumor(s), polyp(s), or other lesion(s) by snare technique 75629, 59, Colonoscopy, flexible; with biopsy, single or multiple CPT copyright 2021 [employer]. All rights reserved. The codes documented in this report are preliminary and upon cytotechnologist/histotechnologist review may be revised to meet current compliance requirements. Christopher Olivares DO 01/29/2024 7:46:18 AM This report has been signed electronically. Number of Addenda: 0 Note Initiated On: 01/29/2024 7:07 AM
--- NOTE | 2024-01-29 07:51 | PCM.POST.ANE ---
Anesthesia: Postop Eval I Current Vital Signs Temperature: 96.9 F Pulse Rate: 70 Blood Pressure: 131/101 Respiratory Rate: 16 Pulse Ox: 98 Oxygen Delivery Method: Room Air Assessment Airway patent: Yes Spontaneous unlabored respirations: Yes Mental status: Awake and Calm nausea: No Vomiting: No Anesthesia Complication: No Fluid Hydration Crystalloid volume administer (ml): 10 Total IV fluid infused: 10 Progress Note Anesthesia document: Postop Eval 1 completed: Yes
--- NOTE | 2024-01-29 16:29 | POSTOPAN2_ITS ---
Anesthesia Postop Eval I Sum Postop Eval Completion status Anesthesia document: Postop Eval 1 completed: Yes Anesthesia Postop Eval I Summary Anesthesia Postop Eval I Summary: Anesthesia Postop Eval I: Assessment Summary Airway patent Yes 01/29/24 07:52 [email or web address] Spontaneous unlabored Yes 01/29/24 07:52 [email or web address] respirations Mental status Awake,Calm 01/29/24 07:52 [email or web address] nausea No 01/29/24 07:52 [email or web address] Vomiting No 01/29/24 07:52 [email or web address] Anesthesia Postop Eval I: Fluid Summary Crystalloid volume administer 10 01/29/24 07:52 [email or web address] (ml) Colloids volume administered ( ml) Blood Product volume administered (ml) Total IV fluid infused 10 01/29/24 07:52 [email or web address] Anesthesia Postop Eval I: Summary Notes Anesthesia Complication No 01/29/24 07:52 [email or web address] Anesthesia Complication Comment: Post-operative progress note Anesthesia: Postop Eval II Evaluation Mental status: Awake Pain Level: 0 nausea: No Vomiting: No
--- NOTE | 2024-01-29 16:29 | PCM.POSTANE2 ---
Anesthesia Postop Eval I Sum Postop Eval Completion status Anesthesia document: Postop Eval 1 completed: Yes Anesthesia Postop Eval I Summary Anesthesia Postop Eval I Summary: Anesthesia Postop Eval I: Assessment Summary Airway patent Yes 01/29/24 07:52 [email or web address] Spontaneous unlabored Yes 01/29/24 07:52 DEPUTY [email or web address] respirations Mental status Awake,Calm 01/29/24 07:52 [email or web address] [email or web address] nausea No 01/29/24 07:52 DEPUTY [email or web address] Vomiting No 01/29/24 07:52 [email or web address] [email or web address] Anesthesia Postop Eval I: Fluid Summary Crystalloid volume administer 10 01/29/24 07:52 [email or web address] (ml) Colloids volume administered ( ml) Blood Product volume administered (ml) Total IV fluid infused 10 01/29/24 07:52 DEPUTY [email or web address] Anesthesia Postop Eval I: Summary Notes Anesthesia Complication No 01/29/24 07:52 DEPUTY [email or web address] Anesthesia Complication Comment: Post-operative progress note Anesthesia: Postop Eval II Evaluation Mental status: Awake Pain Level: 0 nausea: No Vomiting: No
== END 2024-01-29 08:29 | disposition home or self-care (01) ==
LOC: EN 06:02 → AC 06:03
PROVIDERS: PCP Family Medicine; Referring Provider Family Medicine; Visit Provider Internal Medicine Gastroenterology
PROC: 0DJD8ZZ Inspection of Lower Intestinal Tract, Via Natural or Artificial Opening Endoscopic (ICD-10-PCS; CPT 45378; principal; 2024-01-29 06:55)
DX: D12.5 Benign neoplasm of sigmoid colon (principal); D12.3 Benign neoplasm of transverse colon; K63.5 Polyp of colon; K62.1 Rectal polyp; Z80.0 Family history of malignant neoplasm of digestive organs; F17.210 Nicotine dependence, cigarettes, uncomplicated; F17.290 Nicotine dependence, other tobacco product, uncomplicated
CPT/HCPCS: 45385; 45380; 88305; A4216